=== PATIENT | female | born 2005 | race Two or more races ===

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

== ENCOUNTER → 2023-06-19 | Outpatient (CLI) | payer OTHER ==
[~2023-06-19] MED LIST: ISIB1TAB
[2023-06-19 10:26] LABS: HEMATOCRIT 40.4 % (36.0-47.0); HEMOGLOBIN 13.3 g/dl (12.0-15.5); MEAN CORPUSCULAR HEMOGLOBIN 26.5 pg (27.0-33.0); MEAN CORPUSCULAR HGB CONC 32.9 g/dl (32.0-36.5); MEAN CORPUSCULAR VOLUME 80.6 fl (80.0-96.0); PLATELET COUNT, AUTOMATED 318 10^3/uL (150-450); RED BLOOD COUNT 5.01 10^6/uL (4.00-5.40); WHITE BLOOD COUNT 8.8 10^3/uL (4.0-10.0)
[2023-06-19 10:50] LABS: ALBUMIN 3.4 G/DL (3.2-5.2); ALKALINE PHOSPHATASE 47 U/L (46-116); ALT/SGPT 18 U/L (7.0-40); AST/SGOT 9 U/L (<34); BILIRUBIN,TOTAL 0.5 MG/DL (0.3-1.2); BLOOD UREA NITROGEN 10 MG/DL (9-23); CALCIUM LEVEL 8.6 MG/DL (8.5-10.1); CARBON DIOXIDE LEVEL 27 MMOL/L (20-31); CHLORIDE LEVEL 103 MMOL/L (98-107); CREATININE FOR GFR 0.52 MG/DL (0.55-1.30); GLUCOSE, FASTING 87 MG/DL (60-100); MAGNESIUM LEVEL 2.2 MG/DL (1.8-2.4); POTASSIUM SERUM 4.4 MMOL/L (3.5-5.1); SODIUM LEVEL 135 MMOL/L (136-145); TOTAL PROTEIN 6.8 G/DL (5.7-8.2)
== END ==
LOC: M LAB 10:00
PROVIDERS: ATTEND Registered Nurse
DX: R25.2 Cramp and spasm (principal); I47.10 Supraventricular tachycardia, unspecified; Z79.3 Long term (current) use of hormonal contraceptives

== ENCOUNTER → 2023-07-27 | Outpatient (CLI) | payer OTHER ==
[2023-07-27 18:12] LABS: HEMATOCRIT 38.2 % (36.0-47.0); HEMOGLOBIN 12.3 g/dl (12.0-15.5); MEAN CORPUSCULAR HEMOGLOBIN 26.7 pg (27.0-33.0); MEAN CORPUSCULAR HGB CONC 32.2 g/dl (32.0-36.5); PLATELET COUNT, AUTOMATED 330 10^3/uL (150-450); WHITE BLOOD COUNT 10.6 10^3/uL (4.0-10.0)
[2023-07-27 18:52] LABS: ALBUMIN 3.4 G/DL (3.2-5.2); ALKALINE PHOSPHATASE 56 U/L (46-116); ALT/SGPT 21 U/L (7.0-40); AST/SGOT 11 U/L (<34); BILIRUBIN,TOTAL 0.3 MG/DL (0.3-1.2); BLOOD UREA NITROGEN 13 MG/DL (9-23); CALCIUM LEVEL 9.1 MG/DL (8.5-10.1); CARBON DIOXIDE LEVEL 26 MMOL/L (20-31); CHLORIDE LEVEL 105 MMOL/L (98-107); CREATININE FOR GFR 0.57 MG/DL (0.55-1.30); GLUCOSE, FASTING 87 MG/DL (60-100); POTASSIUM SERUM 4.1 MMOL/L (3.5-5.1); SODIUM LEVEL 138 MMOL/L (136-145); TOTAL PROTEIN 6.9 G/DL (5.7-8.2)
== END ==
LOC: M WUC 14:38
PROVIDERS: ATTEND Registered Nurse
DX: R60.0 Localized edema (principal); M79.671 Pain in right foot; M79.672 Pain in left foot

== ENCOUNTER 2024-05-27 04:51 | Emergency (ER) | payer OTHER ==
[~2024-05-27] VITALS: Ht 170.2 cm; Wt 120.0 kg
[~2024-05-27 04:51] MED LIST changes: -ISIB1TAB; +ISIB1TAB PO
[2024-05-27] MEDS ORDERED: MORPHINE 4 MG/ML 1ML VIAL IV PRN (08:05)
[2024-05-27 08:11] LABS: BASO % 0.5 % (0.0-1.0); EOS % 0.2 % (0.0-3.0); HEMATOCRIT 38.6 % (36.0-47.0); HEMOGLOBIN 12.6 g/dl (12.0-15.5); LYMPH # 1.6 10^3/uL (1.5-5.0); LYMPH % 18.9 % (24.0-44.0); MEAN CORPUSCULAR HEMOGLOBIN 26.1 pg (27.0-33.0); MEAN CORPUSCULAR HGB CONC 32.6 g/dl (32.0-36.5); MEAN CORPUSCULAR VOLUME 80.1 fl (80.0-96.0); MONO # 0.4 10^3/uL (0.0-0.8); MONO % 4.8 % (2.0-8.0); NEUTROPHILS # 6.2 10^3/uL (1.5-8.5); NEUTROPHILS % 75.4 % (36.0-66.0); PLATELET COUNT, AUTOMATED 314 10^3/uL (150-450); RED BLOOD COUNT 4.82 10^6/uL (4.00-5.40); WHITE BLOOD COUNT 8.2 10^3/uL (4.0-10.0)
[2024-05-27] MEDS: PANTOPRAZOLE 40MG VIAL IV ONE (08:29)
[2024-05-27] MEDS: LR 1,000 ML IV SCH (08:30)
[2024-05-27] MEDS: ONDANSETRON 4MG 2ML VIAL IV ONE (08:30)
[2024-05-27 08:39] LABS: LIPASE 22 U/L (12-53)
[2024-05-27 08:41] LABS: ALBUMIN 3.4 G/DL (3.2-5.2); ALKALINE PHOSPHATASE 71 U/L (35-104); ALT/SGPT 65 U/L (7.0-40); AST/SGOT 62 U/L (<34); BILIRUBIN,TOTAL 0.4 MG/DL (0.3-1.2); BLOOD UREA NITROGEN 8 MG/DL (9-23); CALCIUM LEVEL 8.7 MG/DL (8.5-10.1); CARBON DIOXIDE LEVEL 25 MMOL/L (20-31); CHLORIDE LEVEL 102 MMOL/L (98-107); CREATININE FOR GFR 0.53 MG/DL (0.55-1.30); GLOMERULAR FILTRATION RATE > 60.0 (>60); GLUCOSE, FASTING 111 MG/DL (60-100); POTASSIUM SERUM 4.1 MMOL/L (3.5-5.1); SODIUM LEVEL 140 MMOL/L (136-145)
[2024-05-27 08:49] LABS: HCG, SERUM QUALITATIVE NEGATIVE (NEGATIVE)
[2024-05-27] MEDS: KETOROLAC 30 MG/ML 1ML VIAL IV ONE (08:52)
[2024-05-27] MEDS ORDERED: ISOVUE-370 76% 100ML VIAL As Ordered ONE (09:03)
[2024-05-27] MEDS ORDERED: PERCOCET PO (10:57)
[2024-05-27] MEDS ORDERED: LEVO1TAB40 PO (10:57)
[2024-05-27] MEDS ORDERED: ONDA-83 PO (10:57)
[2024-05-27 11:30] VITALS: BP 120/60; TEMP 98.2; O2SAT 96
== END 2024-05-27 11:46 | disposition home or self-care (01) ==
LOC: M ED 04:51
DX: K80.00 Calculus of gallbladder with acute cholecystitis without obstruction (principal); F17.290 Nicotine dependence, other tobacco product, uncomplicated; R16.0 Hepatomegaly, not elsewhere classified; K76.0 Fatty (change of) liver, not elsewhere classified
CPT/HCPCS: 74177; 76705; 80047; 80053; 83690; 84703; 85025; 96374; 96375; 99284; J1885; J2405; J2470; Q9967

== ENCOUNTER 2024-05-27 20:54 | Observation (INO) | payer OTHER ==
[~2024-05-27] VITALS: Ht 170.2 cm; Wt 124.3 kg
[~2024-05-27 20:54] MED LIST changes: +LEVO1TAB40 PO; +ONDA-83 PO; +PERCOCET PO
[2024-05-27 22:46] LABS: BASO % 0.4 % (0.0-1.0); EOS # 0.1 10^3/uL (0.0-0.5); EOS % 0.5 % (0.0-3.0); HEMATOCRIT 38.8 % (36.0-47.0); HEMOGLOBIN 12.8 g/dl (12.0-15.5); LYMPH % 19.9 % (24.0-44.0); MEAN CORPUSCULAR HEMOGLOBIN 26.4 pg (27.0-33.0); MEAN CORPUSCULAR VOLUME 80.2 fl (80.0-96.0); MONO # 0.7 10^3/uL (0.0-0.8); MONO % 6.4 % (2.0-8.0); NEUTROPHILS # 7.4 10^3/uL (1.5-8.5); NEUTROPHILS % 72.6 % (36.0-66.0); PLATELET COUNT, AUTOMATED 315 10^3/uL (150-450); RED BLOOD COUNT 4.84 10^6/uL (4.00-5.40); WHITE BLOOD COUNT 10.2 10^3/uL (4.0-10.0)
[2024-05-27 23:34] LABS: ALBUMIN 3.5 G/DL (3.2-5.2); BILIRUBIN,DIRECT 0.2 MG/DL (<0.4); BILIRUBIN,TOTAL 0.5 MG/DL (0.3-1.2); TOTAL PROTEIN 7.4 G/DL (5.7-8.2)
[2024-05-27] MEDS: ONDANSETRON 4MG 2ML VIAL IV ONE (23:49)
[2024-05-27] MEDS: MORPHINE 4 MG/ML 1ML VIAL IV PRN (23:53)
[2024-05-28] VITALS (7 sets, daily range): BP systolic 133–149; BP diastolic 62–77; TEMP 98.2–101.1; O2SAT 95–99
[2024-05-28] MEDS: PIPERACILLIN/TAZOBACTAM SOD 4.5 GM in DEXTROSE 5% (D5W) ADV/MINI-BAG 50 ML IV ONE (01:18)
[2024-05-28 01:23] LABS: KETONE, URINE AUTO RFX TRACE mg/dL (NEGATIVE); LEUKOCYTE ESTERASE UR AUTO RFX NEGATIVE (NEGATIVE); MUCUS, URINE RFX SMALL (NEGATIVE); NITRITE, URINE AUTO RFX NEGATIVE (NEGATIVE); RBC, URINE AUTO RFX 0 /HPF (0-3); SQUAM EPITHELIAL CELL UR AURFX 2 /HPF (0-6); WBC, URINE AUTO RFX 0 /HPF (0-3)
[2024-05-28] MEDS: NS (Normal Saline) 0.9% 1,000 ML IV SCH ×2 (02:34→22:00)
[2024-05-28] MEDS: PROMETHAZINE 25MG/ML 1ML VIAL IV PRN (03:54)
[2024-05-28] MEDS: MORPHINE 2 MG/ML 1ML VIAL IV PRN (03:54)
[2024-05-28] MEDS: HEPARIN SOD (PORCINE) 5000UNITS/ML 1ML VIAL/SYRINGE SC SCH (06:26)
[2024-05-28 08:34] LABS: HEMATOCRIT 35.4 % (36.0-47.0); HEMOGLOBIN 11.5 g/dl (12.0-15.5); MEAN CORPUSCULAR HGB CONC 32.5 g/dl (32.0-36.5); MEAN CORPUSCULAR VOLUME 80.1 fl (80.0-96.0); PLATELET COUNT, AUTOMATED 262 10^3/uL (150-450); RED BLOOD COUNT 4.42 10^6/uL (4.00-5.40); WHITE BLOOD COUNT 7.6 10^3/uL (4.0-10.0)
[2024-05-28] MEDS: PIPERACILLIN/TAZOBACTAM SOD 4.5 GM in DEXTROSE 5% (D5W) ADV/MINI-BAG 50 ML IV SCH (08:44)
[2024-05-28] MEDS: ONDANSETRON 4MG 2ML VIAL IV PRN (08:44)
[2024-05-28] MEDS: KETOROLAC 30 MG/ML 1ML VIAL IV SCH (09:55)
[2024-05-28 10:32] LABS: MONO REFLEX EBV COMP NEGATIVE (NEGATIVE)
[2024-05-28 10:46] LABS: HEPATITIS B SURFACE ANTIGEN NEGATIVE (NEGATIVE)
[2024-05-28 11:07] LABS: HEPATITIS B CORE ANTIBODY IGM NEGATIVE (NEGATIVE)
[2024-05-28] MEDS: PANTOPRAZOLE 40MG VIAL IV SCH (12:00)
[2024-05-28] MEDS ORDERED: HOME MED LIST COMPLETE! XX SCH (14:00)
[2024-05-28] MEDS: ACETAMINOPHEN *IV* 1,000 MG in IV 1 EA IV PRN (16:17)
[2024-05-29] VITALS: BP 133/73; TEMP 98.2; O2SAT 96
[2024-05-29 04:00] VITALS: BP 137/75; TEMP 98; O2SAT 96
[2024-05-29 08:24] LABS: BASO % 0.6 % (0.0-1.0); EOS # 0.1 10^3/uL (0.0-0.5); EOS % 1.2 % (0.0-3.0); HEMATOCRIT 34.9 % (36.0-47.0); LYMPH # 1.7 10^3/uL (1.5-5.0); LYMPH % 26.1 % (24.0-44.0); MEAN CORPUSCULAR HEMOGLOBIN 25.6 pg (27.0-33.0); MEAN CORPUSCULAR HGB CONC 31.5 g/dl (32.0-36.5); MEAN CORPUSCULAR VOLUME 81.4 fl (80.0-96.0); MONO # 0.6 10^3/uL (0.0-0.8); MONO % 8.6 % (2.0-8.0); NEUTROPHILS # 4.1 10^3/uL (1.5-8.5); NEUTROPHILS % 63.3 % (36.0-66.0); PLATELET COUNT, AUTOMATED 244 10^3/uL (150-450); RED BLOOD COUNT 4.29 10^6/uL (4.00-5.40); WHITE BLOOD COUNT 6.4 10^3/uL (4.0-10.0)
[2024-05-29 08:58] LABS: ALKALINE PHOSPHATASE 59 U/L (35-104); ALT/SGPT 79 U/L (7.0-40); AST/SGOT 60 U/L (<34); BILIRUBIN,TOTAL 0.4 MG/DL (0.3-1.2); BLOOD UREA NITROGEN < 5 MG/DL (9-23); CALCIUM LEVEL 8.5 MG/DL (8.5-10.1); CARBON DIOXIDE LEVEL 25 MMOL/L (20-31); CHLORIDE LEVEL 107 MMOL/L (98-107); CREATININE FOR GFR 0.71 MG/DL (0.55-1.30); GLOMERULAR FILTRATION RATE > 60.0 (>60); GLUCOSE, FASTING 95 MG/DL (60-100); POTASSIUM SERUM 3.3 MMOL/L (3.5-5.1); SODIUM LEVEL 142 MMOL/L (136-145); TOTAL PROTEIN 6.3 G/DL (5.7-8.2)
[2024-05-29 11:00] VITALS: BP 136/78; TEMP 97.8; O2SAT 96
[2024-05-29 16:00] VITALS: BP 140/86; TEMP 98.9; O2SAT 98
[2024-05-29 20:00] VITALS: BP 145/72; TEMP 98; O2SAT 97
[2024-05-30] VITALS: BP 142/69; TEMP 99.1; O2SAT 96
[2024-05-30] MEDS: NS (Normal Saline) 0.9% 1,000 ML IV SCH (00:09)
[2024-05-30 04:00] VITALS: BP 116/63; TEMP 97.8; O2SAT 96
[2024-05-30 06:12] LABS: BASO % 0.6 % (0.0-1.0); EOS # 0.1 10^3/uL (0.0-0.5); EOS % 2.1 % (0.0-3.0); LYMPH # 2.3 10^3/uL (1.5-5.0); LYMPH % 34.1 % (24.0-44.0); MEAN CORPUSCULAR HGB CONC 32.3 g/dl (32.0-36.5); MEAN CORPUSCULAR VOLUME 80.5 fl (80.0-96.0); MONO # 0.5 10^3/uL (0.0-0.8); MONO % 6.6 % (2.0-8.0); NEUTROPHILS # 3.8 10^3/uL (1.5-8.5); NEUTROPHILS % 56.3 % (36.0-66.0); PLATELET COUNT, AUTOMATED 224 10^3/uL (150-450); RED BLOOD COUNT 3.85 10^6/uL (4.00-5.40); WHITE BLOOD COUNT 6.8 10^3/uL (4.0-10.0)
[2024-05-30 06:42] LABS: BLOOD UREA NITROGEN < 5 MG/DL (9-23); CALCIUM LEVEL 7.7 MG/DL (8.5-10.1); CARBON DIOXIDE LEVEL 24 MMOL/L (20-31); CHLORIDE LEVEL 111 MMOL/L (98-107); CREATININE FOR GFR 0.58 MG/DL (0.55-1.30); GLOMERULAR FILTRATION RATE > 60.0 (>60); GLUCOSE, FASTING 97 MG/DL (60-100); POTASSIUM SERUM 3.5 MMOL/L (3.5-5.1); SODIUM LEVEL 145 MMOL/L (136-145)
[2024-05-30 07:30] VITALS: BP 134/80; TEMP 98.5; O2SAT 96
[2024-05-30 09:08] VITALS: BP 140/88; TEMP 97.6; O2SAT 97
[2024-05-30 12:30] VITALS: BP 136/84; TEMP 97.7; O2SAT 100
[2024-05-30] MEDS ORDERED: ACET-907 PO (13:44)
[2024-05-30] MEDS ORDERED: METR-265 PO (13:44)
[2024-05-30] MEDS ORDERED: CIPR250T3 PO (13:44)
[2024-05-30] MEDS ORDERED: LACT1TAB9 PO (13:44)
[2024-05-31 13:07] LABS: EBV VIRAL CAPSID AG IGM < 36.00 U/mL (<36.00)
[2024-06-21] MEDS ORDERED: ONDA-83 PO (07:59)
[2024-06-21] MEDS ORDERED: OXYC1TAB23 PO (07:59)
== END 2024-05-30 15:02 | disposition home or self-care (01) ==
LOC: M ED 20:54 → M ED INP 20:55 → M PED 05-28 02:55 → M MS4PR 05-30 09:21
PROVIDERS: ADMIT Family Medicine; ATTEND Internal Medicine
DX: K81.0 Acute cholecystitis (principal); R16.0 Hepatomegaly, not elsewhere classified; K76.0 Fatty (change of) liver, not elsewhere classified; E66.01 Morbid (severe) obesity due to excess calories; Z79.2 Long term (current) use of antibiotics; Z79.899 Other long term (current) drug therapy
CPT/HCPCS: 36415; 74177; 74181; 76705; 80047; 80048; 80053; 80074; 80076; 81001; 83690; 84703; 85025; 85027; 86140; 86308; 86664; 86665; 87507; 93005; 96361; 96365; 96366; 96374; 96375; 96376; 99284; 99285; J0131; J1885; J2405; J2470; J2543; J2550; Q9967

== ENCOUNTER → 2025-01-04 | Outpatient (CLI) | payer OTHER ==
[~2025-01-04] MED LIST changes: +ACET-907 PO; +CIPR250T3 PO; +LACT1TAB9 PO; +METR-265 PO; +OXYC1TAB23 PO
== END ==
LOC: M LAB 11:30 → M WUC 11:30
PROVIDERS: ATTEND Registered Nurse
DX: Z11.1 Encounter for screening for respiratory tuberculosis (principal)